=== PATIENT | female | born 1960 | race Caucasian/White ===

== ENCOUNTER 2016-09-18 08:52 | Outpatient (CLI) | payer OTHER ==
--- NOTE | 2016-09-18 14:24 | Diagnostic Imaging Report ---
[facility] [address] [facility].[address] [id number] Report Submission Date: Sep 18, 2016 2:02:52 PM CDT Patient Study Name: JOSE LERNER Date: Sep 18, 2016 9:41:42 AM CDT Modality Type: MR Gender: F Description: MRI LOW EXT JNT W/O CONTRAST : 62 Institution: [facility] Physician: SONIA FISCHER Magnetic resonance imaging of the left knee without contrast History: Pain after injury 3 weeks ago Findings: Multiplanar magnetic resonance imaging left knee was performed without contrast revealing morbid obesity. In the patellofemoral compartment, there is prepatellar edema, moderate to large joint effusion, and moderate patellar chondromalacia. The quadriceps tendon, patellar tendon, and patellar retinacula are intact. A benign-appearing well circumscribed lesion is present in the distal femoral metaphysis region measuring 1.1 cm in maximal dimension. This exhibits evidence some internal calcification suggesting an enchondroma. The anterior and posterior cruciate ligaments are intact. In the medial compartment there is moderate to full thickness cartilage loss along the central weightbearing surface of the medial femoral condyle. The medial collateral ligament and medial meniscus are intact. A moderate sized popliteal cyst and pericapsular edema are present. In the lateral compartment the lateral meniscus, articular cartilage, and lateral collateral ligament complex are intact. Impression: 1. Medial capsular edema with moderate popliteal cyst. 2. Full thickness medial femoral chondromalacia. 3. Large joint effusion. 4. Moderate patellar chondromalacia. 5. Probable distal femoral enchondroma. Electronically signed on Sep 18, 2016 2:02:52 PM CDT by: Nikhil VÁZQUEZ
== END 2016-09-18 08:53 ==
LOC: RAD 08:52
PROVIDERS: ATTEND Physician Assistant
DX: M25.562 Pain in left knee (principal)
CPT/HCPCS: 73721

== ENCOUNTER 2017-07-10 07:20 | Day surgery (SDC) | payer OTHER ==
--- NOTE | 2017-07-10 11:55 | GI Report ---
REFERRING PHYSICIAN: AMANDA Howe ACQUISITIONS EDITOR: Ricardo Thomas MD PROCEDURE MEDICATION: Propofol as per anesthesia. INDICATIONS: This is the patient's first colonoscopy. She denies changes in bowel habits or bleeding. She is referred for a colonoscopy. PROCEDURE PERFORMED: Screening colonoscopy. PROCEDURE: An Olympus video colonoscope was advanced into the rectum. A few small diverticula in the sigmoid colon. The prep was fair. We were able to advance all the way to the cecum. The appendiceal orifice and a brief glimpse of the terminal ileum looked normal. On slow withdrawal, the cecum, ascending colon, and transverse colon with no obvious intraluminal lesions noted. The descending colon and sigmoid colon with some small diverticula. No diverticulitis. Retroflexion of the rectum was normal. Patient tolerated the procedure well. FINDINGS: 1. Small diverticular disease in sigmoid colon. 2. A slightly atonic redundant colon with just a fair prep. RECOMMENDATIONS: 1. Increase fiber in the diet. 2. Consider re-looking at her colon in 10 years, sooner if clinically indicated. cc: AMANDA Howe [facility] CENTERSilvio
== END 2017-07-10 07:21 ==
LOC: OPSURG 07:20
PROVIDERS: ATTEND Internal Medicine Gastroenterology
DX: Z12.11 Encounter for screening for malignant neoplasm of colon (principal); K57.10 Diverticulosis of small intestine without perforation or abscess without bleeding
CPT/HCPCS: 45378; 81025; J2001; J2704; J7120; S1016